=== PATIENT | male | born 1940 | race Caucasian/White ===

== ENCOUNTER 2022-10-17 08:55 | Inpatient (IN) ==
--- NOTE | 2022-10-12 10:44 | EKG ---
[facility] Test Date: 2022-10-12 Pat Name: Garcia Burris Department: [facility] Room: Gender: Male Insurance Sales Associate: : 1940 Requested By: Pierre Rojas Order Number: [id number] Reading MD: Bebe Downey D.O. Measurements Intervals [place] Rate: 72 P: 70 LA: 133 QRS: 54 QRSD: 102 T: 49 QT: 384 QTc: 421 Interpretive Statements Sinus rhythm Electronically Signed On 10-12-2022 10:44:43 PST by Bebe Downey D.O. /[id number]
[2022-10-12 12:11] LABS: Basophils # (Auto) 0.16 K/mcL (0.00-0.30); Basophils % (Auto) 1.5 % (0.0-2.0); Eosinophils # (Auto) 0.21 K/mcL (0.00-0.70); Hematocrit 41.8 % (40.1-51.0); Hemoglobin 13.3 g/dL (13.7-17.5); Lymphocytes # (Auto) 1.95 K/mcL (1.50-4.80); Lymphocytes % (Auto) 18.8 % (15.5-49.0); Mean Cell Volume 83.6 fL (80.0-100.0); Mean Corpuscular HGB Conc 31.8 g/dL (31.0-36.0); Mean Platelet Volume 9.8 fL (8.8-12.5); Monocytes # (Auto) 1.01 K/mcL (0.10-0.90); Monocytes % (Auto) 9.7 % (1.0-12.0); Neutrophils % (Auto) 66.8 % (38.0-78.0); Platelet Count 389 K/mcL (140-440); Red Cell Distribution Width 13.6 % (11.5-14.5); WBC 10.4 K/mcL (4.5-11.0)
[2022-10-12 12:27] LABS: Appearance,Urine CLEAR (Clear); Bilirubin,Urine NEGATIVE (Negative); Color,Urine LT. YELLOW; Culture Indicated,Urine No; Glucose,Urine (UA) NEGATIVE (Negative); Ketones,Urine NEGATIVE (Negative); Leukocyte Esterase,Urine NEGATIVE /uL (Negative); Nitrate,Urine NEGATIVE (Negative); PH,Urine 6.5 (5.0-9.0); Protein,Urine NEGATIVE (Negative); Specific Gravity,Urine 1.015 (1.000-1.035); Urine Blood NEGATIVE ery/mcL (Negative); Urobilinogen,Urine Normal
[2022-10-12 16:26] LABS: Blood Urea Nitrogen 19 mg/dL (8-23); Calcium 9.4 mg/dL (8.6-10.4); Carbon Dioxide 24 mmol/L (22-30); Chloride 96 mmol/L (96-108); Glomerular Filtration Rate 79; Glucose 95 mg/dL (70-105)
[~2022-10-17 08:55] MED LIST: 0.9 % SODIUM CHLORIDE 9 ML, KETOROLAC 30 MG, ROPIVACAINE HCL/PF 49.5 ML, EPINEPHrine 0.... IJ SCH; ACETAMINOPHEN 500 MG TABLET PO SCH; CELECOXIB 200 MG CAPSULE PO SCH; PREGABALIN 75 MG CAPSULE PO SCH; ceFAZolin 2 GM in DEXTROSE 5% IN WATER 50 ML IV SCH; oxyCODONE 10 MG TAB.ER.12H PO SCH
--- OUTSIDE RECORDS SUMMARY | 2022-10-17 08:59 | External Medical Summary ---
:1940 Author Care Team Providers Name Role Phone [facility] Primary Care Provider [phone] Allergies Code Code System Name Reaction Severity Status Onset 4053 RxNorm Erythromycin Base Active 945507 RxNorm Prevnar 13 (Pf) Active Medications Name Status Start Date Stop Date amlodipine 5 mg tablet Active Not avail able Take 1 tablet every day by oral route. chlorthalidone 25 mg tablet Active Not available Take 1 tablet every day by oral route. Cholestyramine Light 4 gram oral powder Active Not available Take 1 scoop 3 times a day by oral route. doxycycline hyclate 50 mg tablet Active Not available Take 1 tablet every day by oral route. etodolac 400 mg tablet Active Not avail able Take 1 tablet twice a day by oral route. lidocaine HCl 10 mg/mL (1 %) injection solution Active Not available 3ml injection maddy anal tissue lidocaine HCl 100 mg/10 mL (1 %) injection syringe Active Not available 3ml injection lisinopril 40 mg tablet Active Not avai lable Take 1 tablet every day by oral route. Metamucil Active Not available Multi Vitamin Active Not available omeprazole 20 mg tablet,delayed release Active Not available Take 1 tablet every day by oral route. thiamine HCl (vitamin B1) 100 mg tablet Active Not available Take 1 tablet every day by oral route. 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 Procedures Date Name Performed by Hand Surgery Information not avai lable Notes: LEFT Total Replacement of Right Knee Joint In formation not available Unlisted Procedure Shoulder Information not available Partial Resection of Colon Information n ot available Results Lab Results Date Name Specimen Result Interpretation Description Value Range Status Address 12/18/2019 Histology Pos outpatient Final [facility]: [address] , [place] Final [facility] [address], [place] Micro Final [facility]: [address], [place] Gross [facility] [address], [place] 12/18/2019 Histology Pos outpatient Final [facility] - [place]: [address], [place] Final DX Final [facility]: [address], [place] Micro [facility] [address], [place] Final [facility] [address], [place] Past Encounters None recorded. Social History Tobacco Smoking Status Former Smoker (2 packs per day) Vaccine List None recorded. Plan of Care Reminders Provider Appointments None recorded. Lab None recorded. Referral None recorded. Procedures None recorded. Surgeries None recorded. Imaging None recorded. Vitals 01/20/2020 09:45AM Post-Op Height Weight BMI Blood Pressure 6 ft 2 in 212 lbs 27.2 kg/m2 140/78 mm[Hg] 12/31/2019 03:45PM Established Patient 30 Height Blood Pressure 6 ft 2 in 144/72 mm[Hg] 12/18/2019 04:15PM Post-Op Height Blood Pressure 6 ft 2 in 180/80 mm[Hg] 12/17/2019 11:00AM New Patient 30 Height Weight BMI Blood Pressure 6 ft 2 in 212 lbs 27.2 kg/m2 140/80 mm[Hg]
[2022-10-17] MEDS ORDERED: SCOPOLAMINE 1 PATCH PATCH TOPICAL PRN (09:00)
[2022-10-17] MEDS ORDERED: IPRATROPIUM/ALBUTEROL 3 ML AMPUL.NEB NEB PRN ×2 (09:00→12:28)
[2022-10-17] MEDS ORDERED: MIDAZOLAM 2 MG/2 ML VIAL ONE (11:36)
[2022-10-17] MEDS ORDERED: BUPRENORPHINE HCL 0.3 MG/ML ML ONE (11:36)
[2022-10-17] MEDS ORDERED: ROPIVACAINE HCL/PF 30 ML VIAL IJ ONE (11:36)
[2022-10-17] MEDS ORDERED: DEXAMETHASONE 10 MG/ML VIAL ONE (11:36)
[2022-10-17] MEDS ORDERED: TRANEXAMIC ACID 1,000 MG/10 ML VIAL ONE (11:36)
[2022-10-17] MEDS ORDERED: PROPOFOL 200 MG/20 ML VIAL IV ONE (11:36)
[2022-10-17] MEDS ORDERED: ePHEDrine 50 MG/5 ML SYRINGE (ANEST) IV ONE (11:36)
[2022-10-17] MEDS ORDERED: ONDANSETRON 4 MG/2 ML VIAL IV PRN (12:28)
[2022-10-17] MEDS ORDERED: MEPERIDINE 25 MG/ML VIAL IV PRN (12:28)
--- NOTE | 2022-10-17 13:07 | Brief Operative Note ---
Brief Operative Note Date of procedure: 10/17/22 Pre-op diagnosis: right tka mechanical failure Post-op diagnosis: same Procedure: Right tka revision of polyliner Grafts/Implants: Yes Anesthesia: GETA Findings: above Complications: none Surgeon: Sean Carrasco Assistant Corporate Controller: Ralf Blanc Estimated blood loss (cc): 40 Tourniquet Time (Minutes): 41 Specimens Removed/Pathology: none sent Condition: stable Disposition: PACU
--- NOTE | 2022-10-17 13:17 | Discharge Plan ---
Discharge Instructions - TKA Patient Instructions Total Knee Protocol: For Total Knee: Start ROM LENIN with stationary bike or rocking chair. Work on gaining full extension of knee. Posterior dislocation precautions provided. Hip abductor strengthening and gait training instructions provided. Apply Cryocuff as instructed. Dressing Care: May shower in 2 days, Aquacel Ag - leave on for 5 days and Other Additional Dressing Instructions: [place] closure Discharge Plan Patient/Caregiver Discharge Instructions Activity: ambulate only with your walker and as per physical therapy Diet: Regular Diet Prescriptions: New hydrocodone-acetaminophen 10-325 mg tablet 1 - 2 tab PO Q4H PRN (Reason: pain) Qty: 75 0RF aspirin [Ecotrin Low Strength] 81 mg tablet,delayed release (DR/EC) 81 mg PO BID Qty: 60 0RF docusate sodium 100 mg capsule 100 mg PO BID Qty: 60 0RF No Action chlorthalidone 25 mg tablet 25 mg PO QDAY thiamine HCl (vitamin B1) 100 mg tablet 100 mg PO QDAY amlodipine 10 mg tablet 10 mg PO QDAY naproxen sodium [Flanax (naproxen)] 220 mg tablet 220 mg PO TID PRN (Reason: Pain) cholestyramine (bulk) 5 GM powder 4 gm DAILY Rx Instructions: TAKES DAILY WITH METAMUCIL omeprazole 20 MG capsule 20 mg PO DAILY (DME) cane 1 EACH device 1 ea MC 3XW Qty: 1 0RF multivitamin [Multiple Vitamin] Tablet 1 tab PO QAM cetirizine 10 mg Tablet 10 mg PO QDAY sildenafil 25 mg Tablet 25 mg PO BID cyanocobalamin (vitamin B-12) 500 mcg Tablet 500 mcg PO QDAY ascorbic acid (vitamin C) [Vitamin C] 500 mg Tablet 500 mg PO QDAY lisinopril 40 mg Tablet 40 mg PO QDAY cholecalciferol (vitamin D3) [Vitamin D3] 25 mcg (1,000 unit) Capsule 25 mcg PO QDAY diclofenac sodium 1 % Gel 2 g TOPICAL QID Other Ambulatory Orders: CPM Discharge Order (ONCE) Location: None Selected Ordered By: Ralf Blanc Physical Therapy DC - TKA (Routine) Location: None Selected Ordered By: Ralf Blanc Toilet Riser Discharge Order (ONCE) Location: None Selected Ordered By: Ralf Blanc Walker (ONCE) Location: None Selected Ordered By: Ralf Blanc Follow Up Plan Follow up with: Ralf Blanc PA-C [Physician Colorer Machine] - Patient Disposition: Home, Self-Care Prognosis: Good Rehab Potential: Good I certify that the patient requires SNF services: No Overall status at discharge: patient is progressing back to baseline Discharge Orders: Discharge Order (Routine); Ordered 10/18/22 Ordered By: Ralf Blanc
[2022-10-17] MEDS ORDERED: fentaNYL 100 MCG/2 ML VIAL IV PRN (14:07)
[2022-10-17] MEDS ORDERED: HYDROmorphone 1 MG/ML SYRINGE IV PRN (15:32)
[2022-10-17] MEDS: HYDROcodone/APAP 10/325MG TABLET PO PRN ×2 (15:52→19:14)
[2022-10-17] MEDS: DOCUSATE SODIUM 100 MG CAPSULE PO SCH (20:09)
[2022-10-18] MEDS: HYDROcodone/APAP 10/325MG TABLET PO PRN (06:27)
[2022-10-18] MEDS ORDERED: OMEPRAZOLE 20 MG CAPSULE PO SCH (07:30)
--- NOTE | 2022-10-18 07:48 | Orthopedic Progress Note ---
SUBJECTIVE Subjective Patient information: Note initiated : 10/18/22 at 7:47 am Service Date, if different from initiated Date: [] Patient: Garcia Burris 82 y/o M admitted on 10/17/22 for Right Total Knee Arthroplasty Revision. Chief Complaint: [Pt is stable this morning on post operative day without any significant concerns or complaints. Patients vital signs have remained stable. Patients dressing is dry and is grossly intact from a neurovascular and motor standpoint. Patients 10 point ROS is otherwise negative. ] Constitutional Vitals: Vital Signs Temp Pulse Resp BP Pulse Ox O2 Del Method O2 Flow Rate 97.1 F 78 14 135/71 98 6 10/18/22 02:40 10/18/22 02:40 10/18/22 02:40 10/18/22 02:40 10/18/22 02:40 10/18/22 02:40 10/17/22 13:50 Period Temp Pulse Resp BP Sys/Vides Pulse Ox O2 Del Method O2 Flow Rate Last 24 Hr 97.1 F-98.2 F 68-86 10-17 108-147/52-71 94-100 Room Air-Room Air 6-6 Intake and Output 10/17/22 10/18/22 10/18/22 19:59 03:59 11:59 Intake Total 1700 500 Output Total 40 375 350 Balance 1660 125 -350 Weight 217 lb 14.4 oz Intake & Output: Intake & Output 10/17/22 10/18/22 10/18/22 19:59 03:59 11:59 Intake Total 1700 500 Output Total 40 375 350 Balance 1660 125 -350 Weight 217 lb 14.4 oz Intake: Oral 500 IV - Manual Only 1700 Output: Void Amount 375 350 Estimated Blood Loss 40 Other: Meal Dinner Percent of Meal Consumed 100% Feeding Ability Independent Urine Appearance Clear Clear Urine Color Yellow Yellow Extremities Exam Extremities exam: Present normal capillary refill, normal inspection, Foot pink and warm and neurovascular intact OBJ DATA Labs CBC & Chem 7: 10/12/22 07:21 10/12/22 07:21 Meds: Medications Hydrocodone Bitart/Acetaminophen (Hydrocodone/Apap 10/325mg Tablet) 1 - 2 tab PO Q4HP PRN; Protocol PRN Reason: Per Pain Protocol Last Admin: 10/18/22 06:27 Dose: 2 tab Amlodipine Besylate (Amlodipine 10 Mg Tablet) 10 mg PO DAILY [facility] Ascorbic Acid (Ascorbic Acid 500 Mg Tablet) 500 mg PO DAILY [facility] Cetirizine HCl (Cetirizine 10 Mg Tablet) 10 mg PO DAILY [facility] Chlorthalidone (Chlorthalidone 25 Mg Tablet) 25 mg PO DAILY [facility] Cholestyramine Resin (Cholestyramine/Aspartame 4 Gm Powd.Pack) 4 gm PO DAILY@1000 [facility] Docusate Sodium (Docusate Sodium 100 Mg Capsule) 100 mg PO BID [facility] Last Admin: 10/17/22 20:09 Dose: 100 mg Hydromorphone HCl (Hydromorphone 1 Mg/Ml Syringe) 0.5 - 2 mg IV Q2HP PRN; Protocol PRN Reason: Per Pain Protocol Last Admin: 10/17/22 21:10 Dose: 1 mg Iron Carb/Multivit/[place]/Folic Acid (Multivit,Ther Iron,Ca,Fa & Min 1 Tablet) 1 tab PO DAILY [facility] Lisinopril (Lisinopril 20 Mg Tablet) 40 mg PO DAILY [facility] Omeprazole (Omeprazole 20 Mg Capsule) 40 mg PO ACB [facility] Thiamine HCl (Thiamine 100 Mg Tablet) 100 mg PO DAILY [facility] Vitamin D (Vitamin D3 25 Mcg Tablet) 25 mcg PO DAILY [facility] A/P Narrative A/P Narrative: The patient has been educated regarding dressing care, , restrictions, and follow up appointments. The patient has had all necessary DME prescribed. The patient has remained relatively stable during their hospital course. Time Spent With Patient Time: Total time spent is greater than 50% in coordination of care (as documented) at patient's floor/unit and/or counseling patient: Initial: Total time with patient: Less than 40 minutes Subsequent: Total time with patient: Less than 25 minutes Critical Care Time: No
[2022-10-18] MEDS ORDERED: MULTIVIT,THER IRON,CA,FA & MIN 1 TABLET PO SCH (09:00)
[2022-10-18] MEDS ORDERED: ASCORBIC ACID 500 MG TABLET PO SCH (09:00)
[2022-10-18] MEDS ORDERED: CETIRIZINE 10 MG TABLET PO SCH (09:00)
[2022-10-18] MEDS ORDERED: LISINOPRIL 20 MG TABLET PO SCH (09:00)
[2022-10-18] MEDS ORDERED: CHLORTHALIDONE 25 MG TABLET PO SCH ×2 (09:00)
[2022-10-18] MEDS ORDERED: VITAMIN D3 25 MCG TABLET PO SCH (09:00)
[2022-10-18] MEDS ORDERED: amLODIPine 10 MG TABLET PO SCH (09:00)
[2022-10-18] MEDS ORDERED: THIAMINE 100 MG TABLET PO SCH (09:00)
[2022-10-18] MEDS: DOCUSATE SODIUM 100 MG CAPSULE PO SCH (09:03)
[2022-10-18] MEDS ORDERED: CHOLESTYRAMINE/ASPARTAME 4 GM POWD.PACK PO SCH (10:00)
--- NOTE | 2022-10-31 15:10 | Operative Note ---
DATE OF OPERATION: 10/17/2022 PREOPERATIVE DIAGNOSIS: Right knee mechanical loosening. POSTOPERATIVE DIAGNOSIS: Right knee mechanical loosening. PROCEDURE: Right total knee arthroplasty revision of the poly liner. SURGEON: Sean Carrasco M.D. OUTSIDE MACHINIST HELPER: Ralf Blanc PA-C. The PA's assistance was required for the safe and efficient completion of the entire case. This provider's expertise and technical skill were required throughout the case. The PA assisted with preoperative coordination, intraoperative retraction, wound closure, dressing and splint application, as well as postoperative documentation and care coordination. IMPLANTS: One component poly liner. ANESTHESIA: General endotracheal anesthesia. COMPLICATIONS: None. ESTIMATED BLOOD LOSS: 40 mL. TOURNIQUET TIME: 41 minutes at 250 pounds of pressure. SPECIMENS REMOVED AND SENT FOR PATHOLOGY: None. CONDITION: Stable. DISPOSITION: PACU. DESCRIPTION OF PROCEDURE: The patient was brought to the operating room, put to sleep with general LMA anesthesia. Once asleep, the patient had the right leg sterilely prepped and draped in the usual sterile fashion, confirming that preoperative antibiotics and tranexamic acid had been given and the timeout performed. We made a midline incision, midvastus approach was performed. Inspecting that the patient already had a total knee arthroplasty, it was well positioned and no loosening of the main components. The poly liner was stable. However, the ligaments had loosened. This was increased in thickness by 3 mm. This tightened the ligaments and gave us perfect balance. At this point, we thoroughly irrigated, injected the posterior capsule with the post-injection formula. We placed the new poly liner, 3 mm thicker than the old one and then retested the knee, which gave us back the stability. We then closed the midvastus approach with #1 Stratafix x2, closed the skin with Stratafix and adhesive closure. RBH:andreas Job ID: [id number] Doc ID: [id number] Sean Carrasco MD
== END 2022-10-18 11:18 | disposition home or self-care (01) | DRG 489 ==
LOC: MEDSUR 08:55 → EDSTATUS 11:00
PROVIDERS: ADMIT Orthopaedic Surgery; ATTEND Orthopaedic Surgery